=== PATIENT | male | born 1995 | race Caucasian/White ===

== ENCOUNTER 2019-11-14 12:44 | Outpatient (CLI) | payer BC, SELFPAY ==
[2019-11-14 14:00] LABS: Liquefaction Semen Complete in 30 min. (<30 minutes); Semen Color Opaque (Grey-opaque); Semen Immotility 20 %; Semen Non-Progressive Motility 40 %; Semen Progressive Motility 40 % (>32); Semen Total Motility 80 (>40% (PM+NP)); Semen Viscosity INCREASED (Not Increa.); Sperm Count 2.2 Mil/mL (60-150 million/mL)
[2019-11-14 14:01] LABS: Semen Morphology Result to Follow
[2019-11-20 14:01] LABS: Fructose, Semen 193 mg/dL (150-600)
== END 2019-11-14 12:45 | disposition home or self-care (01) ==
LOC: CHSLAB 12:48
PROVIDERS: Visit Provider Obstetrics & Gynecology
DX: N46.9 Male infertility, unspecified (principal)
CPT/HCPCS: 82757; 88160; 88321; 89320